=== PATIENT | male | born 1980 | race Caucasian/White ===

== ENCOUNTER 2019-02-05 08:55 | Emergency (ER) | payer OTHER ==
[~2019-02-05] VITALS: Ht 182.9 cm; Wt 102.1 kg
== END 2019-02-05 09:52 | disposition home or self-care (01) ==
LOC: ED 08:55
DX: S51.042A Puncture wound with foreign body of left elbow, initial encounter (principal); W22.8XXA Striking against or struck by other objects, initial encounter; Z87.891 Personal history of nicotine dependence
CPT/HCPCS: 73080; 90471; 90715; 99283-25

== ENCOUNTER 2024-06-18 05:50 | Emergency (ER) | payer BC ==
[~2024-06-18] VITALS: Ht 182.9 cm; Wt 88.0 kg
[2024-06-18] MEDS ORDERED: DIPHTH,PERTUSS(ACELL),TET VAC 0.5 ML SYRINGE IM ONE (06:30)
[2024-06-18 06:50] VITALS: BP 147/89
== END 2024-06-18 06:53 | disposition home or self-care (01) ==
LOC: ED 05:50
DX: S90.31XA Contusion of right foot, initial encounter (principal); S90.121A Contusion of right lesser toe(s) without damage to nail, initial encounter; Z23 Encounter for immunization; Z87.891 Personal history of nicotine dependence; W22.8XXA Striking against or struck by other objects, initial encounter
CPT/HCPCS: 73630; 90471; 90715; 99283-25